=== PATIENT | male | born 1975 | race African-American/Black ===

== ENCOUNTER 2019-04-19 00:27 | Emergency (ER) | payer OTHER ==
[~2019-04-19] VITALS: Ht 167.6 cm; Wt 80.9 kg
[2019-04-19 00:31] VITALS: BP 149/98
== END 2019-04-19 01:13 | disposition home or self-care (01) ==
LOC: ED 01:07
DX: N34.2 Other urethritis (principal)
CPT/HCPCS: 81001; 87086; 87491; 87591; 96372; 99283; J0696